=== PATIENT | male | born 1980 | race Caucasian/White ===

== ENCOUNTER 2018-05-24 12:00 | Emergency (ER) | payer MEDICARE, MEDICAID ==
[2018-05-24] MEDS ORDERED: ONDANSETRON HCL INJ/PF 4 MG/2 ML SDV IV ONE (12:13)
[2018-05-24] MEDS ORDERED: KETOROLAC TROMETHAMINE INJ/PF 30 MG/1 ML SDV IV ONE (12:13)
[2018-05-24] MEDS ORDERED: NORMAL SALINE 1000 ML 1,000 ML IV ONE (12:13)
--- NOTE | 2018-05-24 12:15 | ER Document Report ---
ED Medical Screen (RME) - General Chief Complaint: Flank Pain Stated Complaint: ABDOMINAL PAIN,NAUSEA Time Seen by Provider: 05/24/18 12:13 Primary Care Provider: CHADWICK TAYLOR MD [Primary Care Provider] - Follow up as needed Mode of Arrival: Ambulatory Information source: Patient TRAVEL OUTSIDE OF THE [place] IN LAST 30 DAYS: No - HPI Patient complains to provider of: R flank pain Onset: This morning - pt with onset of R flank pain earlier this am. Had hematuria last pm - Related Data Allergies/Adverse Reactions: No Known Allergies Allergy (Unverified 05/24/18 12:01) Past Medical History - Social History Frequency of alcohol use: None Drug Abuse: None Renal/ Medical History: Denies: Hx Peritoneal Dialysis Past Surgical History: Reports: Hx Oral Surgery - wisdom teeth Physical Exam - Vital signs Vitals: Temp Pulse Resp BP Pulse Ox 97.7 F 71 20 113/72 96 05/24/18 12:05 05/24/18 12:05 05/24/18 12:05 05/24/18 12:05 05/24/18 12:05 Course - Vital Signs Vital signs: Temp Pulse Resp BP Pulse Ox 97.7 F 71 20 113/72 96 05/24/18 12:05 05/24/18 12:05 05/24/18 12:05 05/24/18 12:05 05/24/18 12:05 Doctor's Discharge - Discharge Referrals: CHADWICK TAYLOR MD [Primary Care Provider] - Follow up as needed
--- NOTE | 2018-05-24 12:51 | RADIOLOGY REPORT (SQ) ---
EXAM DESCRIPTION: CT ABD/PELVIS NO ORAL OR IV COMPLETED DATE/TIME: 05/24/2018 12:26 pm REASON FOR STUDY: R flank pain COMPARISON: None. TECHNIQUE: CT scan of the abdomen and pelvis performed without intravenous or oral contrast. Images reviewed with lung, soft tissue, and bone windows. Reconstructed coronal and sagittal MPR images revi ewed. All images stored on PACS. All CT scanners at this facility use dose modulation, iterative reconstruction, and/or weight based d osing when appropriate to reduce radiation dose to as low as reasonably achievable (ALARA). [facility]: Dose Right [facility]: CareDose [facility]: Dose Right [facility]: Teradose 4D [facility]: Smart [employer] RADIATION DOSE: CT Rad equipment meets quality standard of care and radiation dose reduction techniq ues were employed. CTDIvol: 10.6 mGy. DLP: 634 mGy-cm.mGy. LIMITATIONS: None. FINDINGS: LOWER CHEST: No abnormality. NON-CONTRASTED LIVER, SPLEEN, ADRENALS: Liver: No abnormality. Spleen: No abnormality. Adrenals: No abnormality. PANCREAS: No masses. No peripancreatic inflammatory changes. GALLBLADDER: No abnormality. RIGHT KIDNEY AND URETER: Nonobstructive calculi in the mid and lower pole of the right kidney. 6 x 4 x 4 mm calculus right UPJ junction. Mild dilatation of the upper collecting system. The remainder the right ureter demonstrates no abnormality. The right kidney measures 13.4 cm in length x 6.1 cm i n AP diameter x 5.8 cm in transverse diameter consistent with compensatory hypertrophy. LEFT KIDNEY AND URETER: Atrophic left kidney. AORTA AND RETROPERITONEUM: No aneurysm. No retroperitoneal masses or adenopathy. BOWEL AND PERITONEAL CAVITY: Large amount of food within the stomach. . APPENDIX: Normal. PELVIS, BLADDER, AND ABDOMINAL WALL:Urinary bladder: No abnormality. BONES: No significant findings. OTHER: Scattered small mesenteric nodes in IMPRESSION: Atrophic left kidney. Compensatory enlargement of right kidney with evidence of right m id and lower pole renal calculi. Changes of a 6 x 4 x 4 mm right UPJ calculus with associated mild e ctasia of right upper collecting system and right renal pelvis. TECHNICAL DOCUMENTATION: JOB ID: [id number] SC-69 Quality ID # [id number]: Final reports with documentation of one or more dose reduction techniques (e.g., Au tomated exposure control, adjustment of the mA and/or kV according to patient size, use of iterative reconstruction technique) 2010 [employer]- All Rights Reserved Reading location - IP/workstation name: [email or web address]
[2018-05-24] MEDS ORDERED: TAMSULOSIN HCL 0.4 MG CAP.SR.24H PO ONE (13:40)
--- NOTE | 2018-05-24 13:42 | ER Document Report ---
ED General - General Chief Complaint: Flank Pain Stated Complaint: ABDOMINAL PAIN,NAUSEA Time Seen by Provider: 05/24/18 12:13 Primary Care Provider: [facility] - Follow up in 3-5 days CHADWICK TAYLOR MD [NO LOCAL MD] - Follow up as needed EZRA SCHMITT MD [NO LOCAL MD] - Follow up in 3-5 days Mode of Arrival: Ambulatory Information source: Patient, [facility] Records Notes: 38-year-old male with no reported past medical history presents with sudden onset of right lower quadrant and right flank pain. Patient describes the pain as intense, stabbing but upon my exam is now gone. Patient did have associated nausea which has also resolved. Patient does report that over the last 10 years he has had intermittent right lower quadrant pain which he ignored. He denies any fever, chills, chest pain, shortness of breath, dysuria, hematuria. TRAVEL OUTSIDE OF THE [place] IN LAST 30 DAYS: No - HPI Onset/Duration: Sudden, Gone Quality of pain: Stabbing Severity: Severe Pain Level: 2 Associated symptoms: Nausea, Vomiting. denies: Fever Exacerbated by: Movement Relieved by: Denies Similar symptoms previously: Yes Recently seen / treated by doctor: No - Related Data Allergies/Adverse Reactions: No Known Allergies Allergy (Unverified 05/24/18 12:01) Past Medical History - General Information source: Patient - Social History Smoking Status: Never Smoker Frequency of alcohol use: None Drug Abuse: None Lives with: Spouse/Significant other Family History: Reviewed & Not Pertinent Patient has suicidal ideation: No Patient has homicidal ideation: No - Medical History Medical History: Negative Renal/ Medical History: Denies: Hx Peritoneal Dialysis Past Surgical History: Reports: Hx Oral Surgery - wisdom teeth Review of Systems - Review of Systems Notes: REVIEW OF SYSTEMS: CONSTITUTIONAL : Denies fever, chills, or sweats. Denies recent illness. Denies weight loss, recent hospitalizations. EENT: Denies visual changes, eye pain. Denies sore throat, oral lesions, difficulty swallowing. CARDIOVASCULAR: Denies chest pain. Denies palpitations. Denies lower extremity edema. RESPIRATORY: Denies cough. Denies shortness of breath, wheezing. GASTROINTESTINAL: Denies distention. Denies diarrhea. Denies blood in vo mitus, stools, or per rectum. Denies black, tarry stools. Denies constipation. GENITOURINARY: Denies difficulty urinating, painful urination, frequency, blood in urine, testicular pain or penile discharge. MUSCULOSKELETAL: Denies neck pain or stiffness. Denies joint pain or swelling. SKIN: Denies rash, lesions or sores. HEMATOLOGIC : Denies easy bruising or bleeding. LYMPHATIC: Denies swollen glands. NEUROLOGICAL: Denies confusion or altered mental status. Denies loss of consciousness. Denies dizziness or lightheadedness. Denies headache. Denies weakness or paralysis. Denies problems difficulty with ambulation, slurred speech. Denies sensory loss, numbness, or tingling. Denies seizures. PSYCHIATRIC: Denies anxiety or stress. Denies depression, suicidal ideation, or Physical Exam - Vital signs Vitals: Temp Pulse Resp BP Pulse Ox 97.7 F 71 20 113/72 96 05/24/18 12:05 05/24/18 12:05 05/24/18 12:05 05/24/18 12:05 05/24/18 12:05 - Notes Notes: PHYSICAL EXAMINATION: GENERAL: Well-appearing, well-nourished and in no acute distress. HEAD: Atraumatic, normocephalic. EYES: Pupils equal round and reactive to light, extraocular movements intact, sclera anicteric, conjunctiva are normal. ENT: Nares patent, oropharynx clear without exudates. Moist mucous membranes. NECK: Normal range of motion, supple without lymphadenopathy LUNGS: Breath sounds clear to auscultation bilaterally and equal. No wheezes rales or rhonchi. HEART: Regular rate and rhythm without murmurs ABDOMEN: Soft, nontender, nondistended abdomen. No guarding, no rebound. No masses appreciated. Musculoskeletal: Normal range of motion, no pitting or edema. No cyanosis. NEUROLOGICAL: Cranial nerves grossly intact. Normal speech, normal gait. Cecelia l sensory, motor exams PSYCH: Normal mood, normal affect. SKIN: Warm, Dry, normal turgor, no rashes or lesions noted. Course - Re-evaluation Re-evalutation: Laboratory 05/24/18 05/24/18 12:42 13:55 Sodium 138.9 Potassium 4.3 Chloride 98 Carbon Dioxide 30 Anion Gap 11 BUN 16 Creatinine 1.38 H Est GFR ( Amer) > 60 Est GFR (Non-Af Amer) 58 L Glucose 117 H Calcium 9.9 Urine Color YELLOW Urine Appearance CLOUDY Urine pH 5.0 Ur Specific [place] 1.020 Urine Protein 30 H Urine Glucose (UA) NEGATIVE Urine Ketones NEGATIVE Urine Blood LARGE H Urine Nitrite NEGATIVE Urine Bilirubin NEGATIVE Urine Urobilinogen NEGATIVE Ur Leukocyte Esterase NEGATIVE Urine RBC (Auto) >182 Urine Mucus (Auto) FEW Urine Ascorbic Acid NEGATIVE Abdomen/Pelvis CT 05/24/18 12:13 IMPRESSION: Atrophic left kidney. Compensatory enlargement of right kidney with evidence of right mid and lower pole renal calculi. Changes of a 6 x 4 x 4 mm right UPJ calculus with associated mild ectasia of right upper collecting system and right renal pelvis. Temp Pulse Resp BP Pulse Ox 98 F 71 16 116/74 98 05/24/18 14:55 05/24/18 14:55 05/24/18 14:55 05/24/18 14:55 05/24/18 14:55 05/25/18 12:41 Presents with findings consistent with acute nephrolithiasis. Urinalysis does show hematuria. Laboratory otherwise unremarkable. Pain was able to be controlled here in the emergency department. Patient is tolerating oral intake. Clinical history is not consistent with an acute abdominal aneurysm or dissection, [place], or pulmonary embolus. Urinalysis does not show findings consistent with an infected stone. Vitals have remained within normal limits. Patient will be discharged with recommendations to follow-up with urology, pain medications, and return precautions. They are in agreement with this plan and verbalized indications return to emergency department. Patient received IV fluids, Flomax, Toradol and Zofran during his ED course. He reports complete resolution of his abdominal pain and nausea. - Vital Signs Vital signs: Temp Pulse Resp BP Pulse Ox 98 F 71 16 116/74 98 05/24/18 14:55 05/24/18 14:55 05/24/18 14:55 05/24/18 14:55 05/24/18 14:55 - Laboratory Result Diagrams: 05/24/18 12:42 Laboratory results interpreted by me: 05/24/18 05/24/18 12:42 13:55 Creatinine 1.38 H Est GFR (Non-Af Amer) 58 L Glucose 117 H Urine Protein 30 H Urine Blood LARGE H - Diagnostic Test Radiology reviewed: Image reviewed, Reports reviewed Discharge - Discharge Clinical Impression: Renal colic on right side Urolithiasis Qualifiers: Urinary calculus location: upper urinary tract Qualified Code(s): N20.9 - Urinary calculus, unspecified Hematuria Qualifiers: Hematuria type: unspecified type Qualified Code(s): R31.9 - Hematuria, unspecified Condition: Good Disposition: HOME, SELF-CARE Instructions: Hematuria ([facility]), Kidney Stone ([facility]) Additional Instructions: Your symptoms should improve over the course of the next one week. If you continue to have pain for greater than one week or your pain is not controlled with the pain medications that you have been sent home with you need to return to the emergency department. Please also return if you develop fever, persistent vomiting, or any other symptoms that are concerning to you. You should take ibuprofen 600 mg every 6 hours and use the oral morphine as prescri bed only for pain not controlled by ibuprofen. You are also been sent home with a medication called Flomax to help pass the stone. You've been given Zofran to assist with nausea. Please follow-up with urology in the next 2-3 days. Prescriptions: Ketorolac Tromethamine [Toradol 10 mg Tablet] 10 mg PO Q6HP PRN #20 tablet PRN Reason: Hydrocodone/Acetaminophen [[place] 5-325 mg Tablet] 1 tab PO Q6H #8 tablet Ondansetron [Zofran Odt 4 mg Tablet] 1 - 2 tab PO Q4H PRN #15 tab.rapdis PRN Reason: For Nausea/Vomiting Referrals: CHADWICK TAYLOR MD [NO LOCAL MD] - Follow up as needed FREDI MONSON MD [OCCUPATIONAL MEDICINE PHYSICIAN] - Follow up in 3-5 days EZRA SCHMITT MD [NO LOCAL MD] - Follow up in 3-5 days
[2018-05-24 13:51] LABS: ANION GAP 11 (5-19); BLOOD UREA NITROGEN 16 mg/dL (7-20); CALCIUM 9.9 mg/dL (8.4-10.2); CARBON DIOXIDE 30 mmol/L (22-30); CHLORIDE 98 mmol/L (98-107); GLUCOSE 117 mg/dL (75-110); POTASSIUM 4.3 mmol/L (3.6-5.0); SODIUM 138.9 mmol/L (137-145)
[2018-05-24 14:20] LABS: APPEARANCE,URINE CLOUDY; BILIRUBIN,URINE NEGATIVE (NEGATIVE); COLOR,URINE YELLOW; GLUCOSE, URINE NEGATIVE (NEGATIVE); KETONES,URINE NEGATIVE (NEGATIVE); LEUKOCYTE ESTERASE,URINE NEGATIVE (NEGATIVE); NITRITE,URINE NEGATIVE (NEGATIVE); PROTEIN,URINE 30 mg/dL (NEGATIVE); UROBILINOGEN,URINE NEGATIVE mg/dL (<2.0)
[2018-05-24 15:04] VITALS: BP 116/74
== END 2018-05-24 15:00 | disposition home or self-care (01) ==
LOC: ER 12:00
DX: N23 Unspecified renal colic (principal); N20.9 Urinary calculus, unspecified; R31.9 Hematuria, unspecified; R11.2 Nausea with vomiting, unspecified; N26.1 Atrophy of kidney (terminal)
CPT/HCPCS: 99284; 96361; 96374; 96375; 36415; 80048; 81001; 74176; J1885; A9270; J2405; J7030

== ENCOUNTER 2019-08-04 14:14 | Emergency (ER) | payer MEDICARE, MEDICAID ==
[2019-08-04] MEDS ORDERED: DIPHENHYDRAMINE HCL 25 MG CAPSULE PO ONE (15:03)
[2019-08-04] MEDS ORDERED: LIDOCAINE 2% VISCOUS SOLN 15 ML UDCUP PO ONE (15:03)
[2019-08-04] MEDS ORDERED: MAG HYDROX/AL HYDROX/SIMETH SUSP 30 ML UDCUP PO ONE (15:03)
[2019-08-04] MEDS ORDERED: METOCLOPRAMIDE HCL ORAL SOLN 10 MG/10 ML UDCUP PO ONE (15:03)
--- NOTE | 2019-08-04 15:08 | ER Document Report ---
ED Medical Screen (RME) - General Chief Complaint: Other Stated Complaint: POSSIBLE MEDICATION REACTION Time Seen by Provider: 08/04/19 14:52 Mode of Arrival: Ambulatory Information source: Patient Notes: 39-year-old male with history of mood disorder anxiety presents to the emergency department with increased anxiety due to stressors in his life. Reports recently was prescribed buspirone. He reports he took the medication as prescribed Friday and Friday. Today he took a dose at noon. Reports he feels like he is having trouble focusing feels weird. Also complains of chest pain. Patient also complains of stomach irritation like Liborio Madden is tickling his insides. Denies suicidal homicidal ideations. Patient admits to smoking marijuana couple weeks ago to try to calm down. Denies fever nausea vomiting diarrhea. Patient is worried he may be having allergic reaction. I have greeted and performed a rapid initial assessment of this patient. A comprehensive ED assessment and evaluation of the patient, analysis of test results and completion of the medical decision making process will be conducted by additional ED providers. TRAVEL OUTSIDE OF THE [place] IN LAST 30 DAYS: No - Related Data Allergies/Adverse Reactions: No Known Allergies Allergy (Unverified 05/24/18 12:01) Home Medications: buspar 7.5mg PO BID (today day 3) Past Medical History - Social History Chew tobacco use (# tins/day): No Frequency of alcohol use: None Drug Abuse: Marijuana Renal/ Medical History: Denies: Hx Peritoneal Dialysis Past Surgical History: Reports: Hx Oral Surgery - wisdom teeth Physical Exam - Vital signs Vitals: Temp Pulse Resp BP Pulse Ox 98.2 F 75 16 126/84 H 96 08/04/19 14:19 08/04/19 14:08/04/19 14:08/04/19 14:08/04/19 14:19 Course - Vital Signs Vital signs: Temp Pulse Resp BP Pulse Ox 98.2 F 75 16 126/84 H 96 08/04/19 14:54 08/04/19 14:08/04/19 14:08/04/19 14:08/04/19 14:19
--- NOTE | 2019-08-04 15:08 | ER Document Report ---
HPI - HPI Patient complains to provider of: Possible allergic reaction Time Seen by Provider: 08/04/19 14:52 Onset: This morning Onset/Duration: Sudden Pain Level: Denies Context: 39-year-old male with history of mood disorder anxiety presents to the emergency department with increased anxiety due to stressors in his life. Reports recently was prescribed buspirone. He reports he took the medication as prescribed Friday and Friday. Today he took a dose at noon. Reports he feels like he is having trouble focusing feels weird. Also complains of chest pain. Patient also complains of stomach irritation like Liborio Madden is tickling his insides. Denies suicidal homicidal ideations. Patient admits to smoking marijuana couple weeks ago to try to calm down. Denies fever nausea vomiting diarrhea. Patient is worried he may be having allergic reaction. I have greeted and performed a rapid initial assessment of this patient. A comprehensive ED assessment and evaluation of the patient, analysis of test results and completion of the medical decision making process will be conducted by additional ED providers. - CONSTITUTIONAL Constitutional: DENIES: Fever, Chills - NEURO Neurology: DENIES: Headache, Weakness, Vision blurred, Dizzinesss / Vertigo - REPRODUCTIVE Reproductive: DENIES: : Past Medical History - Social History Smoking Status: Current Every Day Smoker Chew tobacco use (# tins/day): No Frequency of alcohol use: None Drug Abuse: Marijuana Family History: Reviewed & Not Pertinent Patient has homicidal ideation: No Renal/ Medical History: Denies: Hx Peritoneal Dialysis Past Surgical History: Reports: Hx Oral Surgery - wisdom teeth Vertical Provider Document - INFECTION CONTROL TRAVEL OUTSIDE OF THE [place] IN LAST 30 DAYS: No Course - Vital Signs Vital signs: Temp Pulse Resp BP Pulse Ox 98.2 F 75 16 126/84 H 96 08/04/19 14:54 08/04/19 14:19 08/04/19 14:19 08/04/19 14:19 08/04/19 14:19
--- NOTE | 2019-08-04 15:32 | RADIOLOGY REPORT (SQ) ---
EXAM DESCRIPTION: CHEST SINGLE VIEW IMAGES COMPLETED DATE/TIME: 08/04/2019 3:23 pm REASON FOR STUDY: chest pain COMPARISON: None. EXAM PARAMETERS: NUMBER OF VIEWS: One view. TECHNIQUE: Single frontal radiographic view of the chest acquired. RADIATION DOSE: NA LIMITATIONS: None. FINDINGS: LUNGS AND PLEURA: No opacities, masses or pneumothorax. No pleural effusion. MEDIASTINUM AND HILAR STRUCTURES: No masses. Contour normal. HEART AND VASCULAR STRUCTURES: Heart normal in size. Normal vasculature. BONES: No acute findings. HARDWARE: None in the chest. OTHER: No other significant finding. IMPRESSION: NO ACUTE RADIOGRAPHIC FINDING IN THE CHEST. TECHNICAL DOCUMENTATION: JOB ID: [id number] 2010 [employer]- All Rights Reserved Reading location - IP/workstation name: [email or web address]
[2019-08-04 15:46] LABS: ABSOLUTE BASOPHILS # (AUTO) 0.1 10^3/uL (0.0-0.2); ABSOLUTE EOSINOPHILS # (AUTO) 0.1 10^3/uL (0.0-0.6); ABSOLUTE LYMPHOCYTES (AUTO) 2.4 10^3/uL (0.5-4.7); ABSOLUTE MONOCYTES (AUTO) 0.7 10^3/uL (0.1-1.4); ABSOLUTE NEUT (AUTO) 6.1 10^3/uL (1.7-8.2); BASOPHILS % (AUTO) 0.6 % (0-2); EOSINOPHILS % (AUTO) 1.3 % (0-6); HEMATOCRIT 48.2 % (37.9-51.0); HEMOGLOBIN 16.7 g/dL (13.5-17.0); LYMPHOCYTES % (AUTO) 25.4 % (13-45); MEAN CORPUSCULAR HEMOGLOBIN 30.8 pg (27.0-33.4); MEAN CORPUSCULAR HGB CONC 34.7 g/dL (32.0-36.0); MEAN CORPUSCULAR VOLUME 89 fl (80-97); MONOCYTES % (AUTO) 7.3 % (3-13); PLATELET COUNT 287 10^3/uL (150-450); RED BLOOD COUNT 5.42 10^6/uL (4.35-5.55); RED CELL DISTRIBUTION WIDTH 12.5 % (11.5-14.0); SEGMENTED NEUTROPHILS % (AUTO) 65.4 % (42-78); TOTAL CELLS COUNTED % (AUTO) 100 %; WHITE BLOOD COUNT 9.3 10^3/uL (4.0-10.5)
[2019-08-04 15:48] LABS: APPEARANCE,URINE CLEAR; BILIRUBIN,URINE NEGATIVE (NEGATIVE); COLOR,URINE STRAW; GLUCOSE, URINE NEGATIVE (NEGATIVE); KETONES,URINE NEGATIVE (NEGATIVE); LEUKOCYTE ESTERASE,URINE NEGATIVE (NEGATIVE); NITRITE,URINE NEGATIVE (NEGATIVE); PROTEIN,URINE NEGATIVE (NEGATIVE); URINE SPECIFIC GRAVITY 1.005; UROBILINOGEN,URINE NEGATIVE mg/dL (<2.0)
[2019-08-04 16:06] LABS: URINE AMPHETAMINES SCREEN NEGATIVE; URINE BARBITURATES SCREEN NEGATIVE; URINE BENZODIAZEPINES SCREEN NEGATIVE; URINE COCAINE SCREEN NEGATIVE; URINE MARIJUANA (THC) SCREEN UNCONFIRMED POSITIVE; URINE METHADONE SCREEN NEGATIVE; URINE PHENCYCLIDINE SCREEN NEGATIVE
[2019-08-04 16:10] LABS: ALBUMIN 5.1 g/dL (3.5-5.0); ALKALINE PHOSPHATASE 74 U/L (38-126); ANION GAP 8 (5-19); ASPARTATE AMINO TRANSFERASE 27 U/L (17-59); BILIRUBIN,TOTAL 0.6 mg/dL (0.2-1.3); BLOOD UREA NITROGEN 14 mg/dL (7-20); CALCIUM 10.1 mg/dL (8.4-10.2); CARBON DIOXIDE 29 mmol/L (22-30); CHLORIDE 102 mmol/L (98-107); GLUCOSE 101 mg/dL (75-110); POTASSIUM 4.2 mmol/L (3.6-5.0); TOTAL PROTEIN 8.1 g/dL (6.3-8.2)
--- NOTE | 2019-08-04 16:48 | ER Document Report ---
ED General - General Chief Complaint: Other Stated Complaint: POSSIBLE MEDICATION REACTION Time Seen by Provider: 08/04/19 14:52 Mode of Arrival: Ambulatory TRAVEL OUTSIDE OF THE [place] IN LAST 30 DAYS: No - HPI Notes: Patient is a very pleasant 39-year-old male with a history of personality and mood disorder who presents to the emergency department for evaluation of chest pain, increased anxiety, occasional difficulty breathing. Patient has a history of anxiety and personality disorder. He has been off medications for this for some time. He had been doing well. Over the last several months, he admits to having increased anxiety since the coronavirus outbreak. He states that about a month ago he started to self medicate with marijuana with the hopes that this would help. He admits that it made it worse. He stopped taking that, got onto a telemedicin appointment with a physician, and was started on BuSpar. Is now on day 3. He states he said some linear burning chest pain on the left side of his chest, as well as some intermittent paresthesias, and his vision seemed "wavy" intermittently. He states that all of the symptoms are intermittent, but he thought he should come to the emergency department to be evaluated for them. He states he is quit smoking marijuana but admits he was smoking it heavily. He denies any suicidal homicidal ideation. No visual or auditory elucidation. - Related Data Allergies/Adverse Reactions: No Known Allergies Allergy (Unverified 05/24/18 12:01) Home Medications: buspar 7.5mg PO BID (today day 3) Past Medical History - General Information source: Patient - Social History Smoking Status: Current Every Day Smoker Chew tobacco use (# tins/day): No Frequency of alcohol use: None Drug Abuse: Marijuana Family History: Reviewed & Not Pertinent Patient has homicidal ideation: No Renal/ Medical History: Denies: Hx Peritoneal Dialysis Past Surgical History: Reports: Hx Oral Surgery - wisdom teeth Physical Exam - Vital signs Vitals: Temp Pulse Resp BP Pulse Ox 98.2 F 75 16 126/84 H 96 08/04/19 14:19 08/04/19 14:19 08/04/19 14:19 08/04/19 14:19 08/04/19 14:19 Course - Re-evaluation Re-evalutation: 08/04/19 17:15 Patient presents to the emergency department for evaluation of chest pain, other vague symptoms, consistent with anxiety and side effects of buspirone. He to started this medication. We talked at length. We talked about the negative aspects of self-medication, particularly with illicit substances. He voiced understanding to this. We talked at length about anxiety, how BuSpar is an ap propriate treatment for that, and how he has to determine whether or not these potential side effects are worth tolerating for some time to see if his anxiety is improved. He voiced understanding. Otherwise he is stable. His laboratory investigations failed to reveal any significant abnormality. His EKG is unremarkable. We will have him follow-up with primary care next week. He is return to the ER with worsening or new concerning symptoms of any sort. - Vital Signs Vital signs: Temp Pulse Resp BP Pulse Ox 98.2 F 75 16 126/84 H 96 08/04/19 14:54 08/04/19 14:19 08/04/19 14:19 08/04/19 14:19 08/04/19 14:19 - Laboratory Result Diagrams: 08/04/19 15:15 08/04/19 15:15 Laboratory results interpreted by md: 08/04/19 15:15 Creatinine 1.26 H Albumin 5.1 H - Diagnostic Test Radiology reviewed: Reports reviewed Radiology results interpreted by md: 08/04/19 17:16 Chest X-Ray 08/04/19 15:03 IMPRESSION: NO ACUTE RADIOGRAPHIC FINDING IN THE CHEST. - EKG Interpretation by Ak Additional EKG results interpreted by md: 08/04/19 17:16 Sinus mechanism with a rate of 60 bpm. Normal axis and intervals. J-point elevation consistent with early repolarization. No old studies available for comparison. Discharge - Discharge Clinical Impression: Anxiety, Side effect of medication Chest pain Qualifiers: Chest pain type: unspecified Qualified Code(s): R07.9 - Chest pain, unspecified Condition: Stable Disposition: HOME, SELF-CARE Instructions: Chest Pain of Unclear Cause ([facility]), Anxiety ([facility]) Additional Instructions: As discussed, chest pain, paresthesias, and many of the symptoms you are describing can be no side effects of the BuSpar. At this time it seems likely that your symptoms were also brought on by anxiety. Your lab work, EKG, and chest x-ray were normal here today. Please follow-up with your primary care provider this week. If you develop worsening or new concerning symptoms of any sort, return immediately to the emergency department for evaluation.
[2019-08-04 17:51] VITALS: BP 118/65
--- NOTE | 2019-08-04 22:29 | EKG REPORT ---
SEVERITY:- NORMAL ECG - SINUS RHYTHM ST ELEV, PROBABLE NORMAL EARLY REPOL PATTERN : Confirmed by: Janet Adame MD 04-Aug-2019 22:27:59
== END 2019-08-04 17:50 | disposition home or self-care (01) ==
LOC: ER 14:14
DX: T43.595A Adverse effect of other antipsychotics and neuroleptics, initial encounter (principal); R07.9 Chest pain, unspecified; F41.9 Anxiety disorder, unspecified; R06.00 Dyspnea, unspecified; F60.9 Personality disorder, unspecified; X58.XXXA Exposure to other specified factors, initial encounter; Z79.899 Other long term (current) drug therapy; F17.200 Nicotine dependence, unspecified, uncomplicated
CPT/HCPCS: 93005; 99284; 36415; 85025; 80053; 81001; 84484; 80307; 71045; 93010; A9270 ×3; J3490